=== PATIENT | female | born 1950 | race Caucasian/White ===

== ENCOUNTER 2021-07-05 08:00 | Outpatient (RCR) | payer MEDICARE, OTHER, SELFPAY ==
--- NOTE | 2021-06-07 12:52 | PTOPEVAL ---
INITIAL PHYSICAL THERAPY EVALUATION and PLAN OF CARE Thank you for referring Estrellita Fishman to [facility] [place].? Estrellita is scheduled to be seen for physical therapy? 2x/week for 4 weeks. Please review, sign, date and return this plan of care VICTOR HUGO. I agree with and certify that the following plan of care is medically necessary. Referring Physician Date Admitting Provider: Attending Provider: Chidi Bey MD Referring Provider: *PT Outpatient Evaluation Start: 06/07/21 07:59 Freq: Status: Active Protocol: Document 06/07/21 07:59 SAMANTHA (Rec: 06/07/21 09:14 SAMANTHA [id number]) Therapy Assessment Status Assessment Status Assessment Status Evaluation Outpatient Past Medical History Past Medical History Source of Past Medical History Patient Cardiovascular History Hx Hypercholesterolemia Yes Hx Hypertension Yes Respiratory History Hx Bronchitis Yes: prone to getting bronchitis Hx Pneumonia Yes: 20 yrs ago Hx Other Respiratory Disorders Yes: seasonal allergies Gastrointestinal History Hx Cholecystectomy Yes: before 1990 Hx Gastroesophageal Reflux Disease Yes Hx Polyps Yes Hx Other Gastrointestinal Disorders Yes: 18 inches removed from colon 2011 Musculoskeletal History Hx Arthritis Yes: cervical, thumbs, etc Hx Other Musculoskeletal Disorders Yes: L knee pain Reproductive History Hx Other Reproductive Disorders Yes: 02/1968 - surgery on ovaries Evaluation Information Problem Diagnosis L knee pain Onset February 2021 Subjective Information Earlier in year was in her Query Text:As Reported By Patient/ basement and was moving cases Family of water, soda - actually had R knee pain - R knee gave way. Then a few months later began to have L knee pain. Going up/down stairs is the worse - tries to put off going into basement. If she has made several trips to the basement, that's when she puts ice on her knee. Going from sitting to standing - needs to get bearing when first stands . Goes slow in morning - getting out of bed - but once moving - feels better. Does have orthotics in [employer] shoes - that she usually wears
--- NOTE | 2021-06-16 09:28 | PCPTNOTE ---
Patient called & cancelled scheduled appointment this date due to illness and Monday's 06/21/21 appointment due to testing.
--- NOTE | 2021-07-05 09:11 | PTOPEVAL ---
PHYSICAL THERAPY DISCHARGE SUMMARY Thank you for referring Estrellita Fishman to [facility].? Estrellita was seen x 6 visits. She met all goals set with exception of TUG score 10 sec or less. She is independent with her HEP and was encouraged to continue with it on a regular basis. She is ready for d/c from PT to HEP at this time. I agree with Estrellita's discharge from PT. Referring Physician Date Admitting Provider: Attending Provider: Chidi Bey MD Referring Provider: Therapy Assessment Status Assessment Status Assessment Status Discharge Evaluation Information Problem Diagnosis L knee pain Subjective Information Estrellita reports that she takes Query Text:As Reported By Patient/ her time on the stairs, Family getting into and out car - easier but does have tendency to lift L leg still, and household activities are a bit easier as well. Pain Assessment Timing of Pain Assessment Timing of Pain Assessment Assessment Pain Scale Pain Scale Used Numeric (1 - 10) Self Report Pain Assessment Left Knee(s) Reported Pain Level 0 Pain Description Sharp Other Pain Description when has sharp pain - pain level goes up to 10. Lowest Pain Intensity 0 Greatest Pain Intensity 5 Lower Extremity Range of Motion Knee Range of Motion Left Knee Flexion Range of Motion - Active 130 Lower Extremity Muscle Strength Testing Hip Strength Left Hip Flexion Strength 4 Good Hip Extension Strength 4+ Good + Hip Abduction Strength 4- Good - Hip Medial Rotation Strength 4+ Good + Hip Lateral Rotation Strength 4+ Good + Knee Strength Left Knee Flexion Strength 5 Normal Knee Extension Strength 5 Normal Balance Assessment Time Up Go (TUG) Assistive Devices None Comments 12.88 sec Rehab Teaching Rehab Teaching Teaching Topic Rehab Teaching Topic Components Exercise,Home Program As Pertains To Technique Recipient Patient Learning Preferences Audio,Demonstration,Discussion ,One-on-One Instruction,Visual ,Written Barriers to Learning None Readiness to Learn Good Response Returns Demonstration, Verbalizes Understanding Method Demonstration,Discussion, Handout,One-On-One Instruction ,Written Instruction Additional Rehab Teaching Comments reviewed importance of continuing to perform HEP PT
== END 2021-07-06 12:04 | disposition home or self-care (01) ==
LOC: ANHHIPT 08:00
PROVIDERS: PCP Internal Medicine; Visit Provider Orthopaedic Surgery
DX: M25.562 Pain in left knee (principal)
CPT/HCPCS: 97014; 97110; 97162; G0283

== ENCOUNTER 2024-06-17 09:38 | Outpatient (CLI) | payer MEDICARE, SELFPAY ==
--- NOTE | ~2024-06-17 | US_ITS ---
EXAMINATION: US soft tissue head and neck DATE: 06/17/2024 09:49 INDICATION: Benign lipomatous neoplasm of skin and subcutaneous soft tissue. TECHNIQUE: Multiple grayscale and Doppler ultrasound images of the head and neck were obtained. COMPARISON: None FINDINGS: There is a normal lymph node in the patient's area of concern in left neck. IMPRESSION: 1. Normal lymph node in the patient's area of concern in left neck. Reviewed, dictated and finalized at location A.
== END 2024-06-17 09:39 ==
LOC: GOSHIMG 09:38
PROVIDERS: PCP Physician Assistant Medical; Visit Provider Otolaryngology
DX: D17.0 Benign lipomatous neoplasm of skin and subcutaneous tissue of head, face and neck (principal)
CPT/HCPCS: 76536